=== PATIENT | male | born 1965 | race Caucasian/White ===

== ENCOUNTER → 2018-08-30 | Outpatient (CLI) | payer OTHER ==
[~2018-08-30] MED LIST: ALLERGY MED; ASPIR 8181 MG PO; DOXYCYCLINE 10100 MG PO; OSELB75 PO; TESSALON PERLE100 M1 PO
== END ==
LOC: M.MRI 13:12
DX: S46.211A Strain of muscle, fascia and tendon of other parts of biceps, right arm, initial encounter (principal); X50.9XXA Other and unspecified overexertion or strenuous movements or postures, initial encounter; Y93.89 Activity, other specified; Y92.89 Other specified places as the place of occurrence of the external cause; Y99.8 Other external cause status